=== PATIENT | male | born 1995 ===

== ENCOUNTER 2023-02-22 12:26 | Emergency (ER) | payer SELFPAY ==
[2023-02-22 12:45] VITALS: BP 141/91; PULSE 76; RESP 18; TEMP 36.2; O2SAT 98; BMI 39.4
--- NOTE | 2023-02-22 13:53 | CRLHL7_ITS ---
For Patients: As a result of the Century Cures Act, medical imaging exams and procedure reports are released immediately into your electronic medical record. You may view this report before your referring provider. If you have questions, please contact your health care provider. Indication: Left-sided abdominal pain, history of diverticulitis and recent cholecystectomy Technique: Volumetric multidetector CT images of the abdomen and pelvis were without the administration of intravenous contrast. Comparison: None available. Findings: The lung bases are clear. The liver is normal in attenuation without intrahepatic biliary ductal dilatation. Prior cholecystectomy. Unremarkable gallbladder fossa. There is no significant common biliary ductal dilatation or abrupt cut off. The spleen is normal in attenuation and size. The stomach and duodenum are grossly unremarkable. The pancreas is normal in attenuation without significant atrophy. The adrenal glands are unremarkable. There is no evidence of radiopaque calculus or hydronephrosis. There is moderate stool seen throughout the colon with distal colonic diverticulosis. There is decompressed appearance of the sigmoid and descending colon without overt pericolonic inflammatory changes. Low-grade inflammatory changes may be difficult to exclude. Prior appendectomy. There is no significant mesenteric, retroperitoneal, or pelvic sidewall lymph nodes. The aorta is nonaneurysmal. There is no significant atherosclerotic disease appreciated. The solid pelvic viscera are grossly unremarkable. There is no free fluid or free air. The anterior abdominal wall is intact without significant hernias. The lumbar vertebral body heights are grossly maintained with minimal endplate Schmorl`s defects. There is mild straightening of the normal lumbar lordosis without evidence of significant spondylolisthesis or displaced fracture. Impression: Moderate stool seen throughout the colon with decompressed appearance of the descending and sigmoid colons without overt pericolonic inflammatory change. Low-grade inflammation is not excluded. Prior cholecystectomy and appendectomy. Otherwise, no definite acute intra-abdominal abnormality is appreciated. Please note that all CT scans at this facility use dose modulation, iterative reconstruction, and/or weight-based dosing when appropriate to reduce radiation dose to as low as reasonably achievable. Dictated by Brijesh Pierre MD @ 02/22/2023 3:44:34 PM (Electronically Signed)
--- NOTE | 2023-02-22 13:54 | ED_ITS ---
HPI - General Adult General Date Seen: 02/22/23 Chief complaint: Abdominal Pain Stated complaint: L side pain Time Seen by Provider: 02/22/23 13:47 Source: patient Mode of arrival: ambulatory Limitations: no limitations History of Present Illness HPI narrative: Patient is a 27-year-old male from [place], he is in town working with his dad today any presents for evaluation of left lower quadrant pain which he says has been there for several days. He was actually evaluated in [place], when he was traveling there for work, several days ago. He says that it was a small ER, they did some labs which they told him was normal and they prescribed Bentyl. Symptoms are not improving. He developed some vomiting at about 4:00 p.m. yesterday and has had some diarrhea as well. No bloody or black stools. No fevers. No urinary symptoms. He had a cholecystectomy about a month ago in [place], he was traveling there to visit his . He says that was done on emergent basis. He has a history of diverticulitis about 2 and half years ago which he says was treated with 2 antibiotics and improved. He denies other significant medical history. Does not smoke, drinks occasionally. No me dication allergies but he does list an allergy to contrast Related Data Home Medications Medication Instructions Recorded Confirmed esomeprazole magnesium .ROUTE 02/22/23 Allergies Allergy/AdvReac Type Severity Reaction Status Date / Time Iodinated Contrast Media Allergy Intermediate Verified 02/22/23 12:50 Review of Systems Status of ROS: Reports: 10 or more systems reviewed and unremarkable except as noted in History and below PFSH PFS Social History Smoking Status: Unknown if ever smoked Do you use any of these nicotine containing products: None Second hand tobacco smoke exposure: No How often do you have a drink containing alcohol: never AUDIT-C Alcohol total score: 0 Non-prescribed substance use: denies use service: No Exam Narrative: Exam Narrative: Vital signs as noted above. In general, an alert, well-appearing patient. Head: Normocephalic, atraumatic. Eyes: Pupils are equal reactive. Extraocular movements are full. Conjunctivae are normal. ENT: Mucous membranes are moist. Throat is normal. Neck: Supple without lymphadenopathy. Heart: Regular rate and rhythm. No murmur or rub. Lungs: Clear bilaterally. No increased work of breathing, crackles or wheezes. Abdomen: Soft and nondistended. He has some tenderness in the left abdomen more mid than lower. No rebound guarding or rigidity. Otherwise abdominal exam is unremarkable. Extremities: Well perfused. No edema. No calf tenderness. Pulses intact. Neurologic: Patient is alert and oriented to person and place. Speech is fluent. Face is symmetric. Moves all extremities equally. Affect: Normal. Skin: Warm and dry. Well perfused. Const: Vital Signs, click to edit/add: Vital Signs - 24 hr 02/22/23 12:45 Temperature 97.2 F L Pulse Rate [Pulse Oximeter] 76 Respiratory Rate 18 Blood Pressure [Ri ght Upper Arm] 141/91 H Pulse Oximetry 98 Oxygen Delivery Me thod Room Air Documenting provider has reviewed patient's vital signs: yes Course Course Hospital Course: Will give some Toradol and Zofran IV, as well as a L of saline. Given his contrast allergy I have ordered a noncontrast abdominal CT to evaluate for possible diverticulitis, colitis, kidney stone, pyelonephritis, or other acute findings. UA labs are pending. Labs are notable for a normal white blood cell count of 5, normal diff. Metabolic panel is normal. Lactate is 1.1, LFTs notable for mild transaminase elevations of 48 and 56, remainder of LFTs are normal. His alk-phos is 31. CRP is normal at 0.9. Lipase is 99. My review of his abdominal CT scan does not show obvious diverticulitis, he does have diverticulosis. I do not see obstruction, kidney stone, or other acute findings. Final radiology read is as follows:Impression: Moderate stool seen throughout the colon with decompressed appearance of the descending and sigmoid colons without overt pericolonic inflammatory change. Low-grade inflammation is not excluded. Prior cholecystectomy and appendectomy. Otherwise, no definite acute intra-abdominal abnormality is appreciated. Please note that all CT scans at this facility use dose modulation, iterative reconstruction, and/or weight-based dosing when appropriate to reduce radiation dose to as low as reasonably achievable He did have 1 episode of vomiting while here. He complained of some itching to nursing but did not have any rash or hives or breathing difficulties. I did discuss all of his tests with him and that at this point I do not see clear etiology for his symptoms. I think diverticulitis is relatively unlikely with 4 days of symptoms, I would anticipate seeing something on CT scan by now or some abnormalities in labs. Discussed that we could potentially do an ultrasound to look for signs of a retained gallstone although I think that is relatively unlikely given the location of his pain as well as absence of abnormalities on liver function testing and lipase. I offered Reglan, or other medications to treat his symptoms. He is upset that he has been here for 3 hours, 1 1/2 of which was spent in the waiting room as it is a busy day. He does not feel that we have done anything for him and wants to leave to go somewhere else. He is discharged against medical advice as my hope would have been that we would have him feeling better prior to leaving, as well as consideration of additional testing. He says he plans to go directly from here to a different facility. Vital Signs Vital signs: Initial Vital Signs Temperature 97.2 F L 02/22/23 12:45 Temperature Source Temporal Artery Scan 02/22/23 12:45 Pulse Rate 76 02/22/23 12:45 Respiratory Rate 18 02/22/23 12:45 Blood Pressure 141/91 H 02/22/23 12:45 Blood Pressure Mean 107 H 02/22/23 12:45 Blood Pressure Position Supine 02/22/23 12:45 Pulse Oximetry 98 02/22/23 12:45 Oxygen Delivery Method Room Air 02/22/23 12:45 Vital Signs Temperature 97.2 F L 02/22/23 12:45 Pulse Rate 76 02/22/23 12:45 Respiratory Rate 18 02/22/23 12:45 Blood Pressure 141/91 H 02/22/23 12:45 Pulse Oximetry 98 02/22/23 12:45 Oxygen Delivery Method Room Air 02/22/23 12:45 Temperature 97.2 F L 02/22/23 12:45 Pulse Rate 76 02/22/23 12:45 Respiratory Rate 18 02/22/23 12:45 Blood Pressure 141/91 H 02/22/23 12:45 Pulse Oximetry 98 02/22/23 12:45 Oxygen Delivery Method Room Air 02/22/23 12:45 Medical Decision Making Lab Data Labs: Lab Results 02/22/23 Range/Units 14:18 WBC 5.09 (4.50-11.00) K/uL RBC 4.82 (4.30-5.90) m/uL Hgb 14.5 (13.5-17.5) gm/dL Hct 44.0 (37.0-53.0) % MCV 91 (80-100) fL MCH 30 (26-34) pg MCHC 33 (32-36) gm/dL RDW Coeff of Patricia 13.2 (11.5-15.5) % Plt Count 190 (140-440) K/uL Neut % (Auto) 64.2 (42.0-72.0) % Lymph % (Auto) 24.2 (20-44) % [place] % (Auto) 10.0 (0.0-11.0) % Eos % (Auto) 0.8 (0.0-7.0) % Baso % (Auto) 0.2 (0.0-3.0) % Neut # (Auto) 3.27 (1.7-7.0) K/uL Lymph # (Auto) 1.23 (0.90-2.90) K/uL [place] # (Auto) 0.50 (0.00-0.90) K/UL Eos # (Auto) 0.04 (0.00-0.50) K/uL Baso # (Auto) 0.01 (0.00-0.30) K/uL Sodium 138 (135-149) mmol/L Potassium 4.1 (3.6-5.1) mmol/L Chloride 101 (96-114) mmol/L Carbon Dioxide 29 (20-32) mmol/L BUN 12 (5-24) mg/dL Creatinine 0.7 (0.5-1.5) mg/dL Estimated Creat Clear 189.45 Estimated GFR 130 ml/min Glucose 98 (60-115) mg/dL Lactate 1.1 (0.5-1.9) mmol/L Calcium 9.4 (8.4-10.6) mg/dL Total Bilirubin 0.4 (0.1-1.5) mg/dL Direct Bilirubin 0.0 (0.0-0.5) mg/dL AST 48 H (12-35) U/L ALT 56 H (4-50) U/L Alkaline Phosphatase 31 L (40-150) U/L C-Reactive Protein 0.9 (0.5-1.0) mg/dL Total Protein 7.7 (6.0-8.3) g/dL Albumin 4.6 (3.3-5.0) g/dL Lipase 99 (23-300) U/L Discharge Plan Discharge Clinical Impression: Abdominal pain Patient Disposition: Left Against Medical Advice Condition: Stable Instructions: Abdominal Pain (ED) Additional Instructions: Labs today including complete blood count, metabolic panel, liver function tests, pancreatic enzymes, inflammatory markers are all normal with the exception of mildly increased transaminases. This is nonspecific. Your other liver function tests are normal. Your CT scan shows diverticulosis without obvious signs of diverticulitis. No other significant findings are noted. Prescriptions: No Action esomeprazole magnesium [Nexium] .ROUTE Stand Alone Forms: [employer] Info Instructions
[2023-02-22 14:25] LABS: Lactate* 1.1 mmol/L (0.5-1.9)
[2023-02-22 14:26] LABS: Basophils Absolute Auto 0.01 K/uL (0.00-0.30); Basophils Percent Auto 0.2 % (0.0-3.0); Eosinophils Absolute Auto 0.04 K/uL (0.00-0.50); Eosinophils Percent Auto 0.8 % (0.0-7.0); Hemoglobin* 14.5 gm/dL (13.5-17.5); Immature Granulocytes Abs Auto 0.03 K/uL (0.00-0.30); Immature Granulocytes Pct Auto 0.6 %; Lymphocytes Absolute Auto 1.23 K/uL (0.90-2.90); Lymphocytes Percent Auto 24.2 % (20-44); Mean Corpuscular HGB Conc 33 gm/dL (32-36); Mean Corpuscular Hemoglobin 30 pg (26-34); Mean Corpuscular Volume 91 fL (80-100); Neutrophils Absolute Auto 3.27 K/uL (1.7-7.0); Neutrophils Percent Auto 64.2 % (42.0-72.0); Platelet Count* 190 K/uL (140-440); RDW Coefficient of Variation % 13.2 % (11.5-15.5); Red Blood Count 4.82 m/uL (4.30-5.90); White Blood Count* 5.09 K/uL (4.50-11.00)
[2023-02-22] MEDS: KETOROLAC 15 MG/ML inj IVP (14:26)
[2023-02-22 14:27] LABS: Slide Review Reflex No
[2023-02-22] MEDS: 0.9 % SODIUM CHLORIDE 1000 ml 1,000 ML IV (14:27)
[2023-02-22] MEDS: ONDANSETRON 2 MG/ML inj 4 MG IVP (14:27)
[2023-02-22 14:43] LABS: Chloride* 101 mmol/L (96-114)
[2023-02-22 14:44] LABS: Albumin* 4.6 g/dL (3.3-5.0); Potassium* 4.1 mmol/L (3.6-5.1); Sodium* 138 mmol/L (135-149)
[2023-02-22 14:48] LABS: Alanine Aminotransferase* 56 U/L (4-50); Alkaline Phosphatase* 31 U/L (40-150); Aspartate Amino Transferase* 48 U/L (12-35); Bilirubin Total* 0.4 mg/dL (0.1-1.5); Blood Urea Nitrogen* 12 mg/dL (5-24); Calcium* 9.4 mg/dL (8.4-10.6); Carbon Dioxide* 29 mmol/L (20-32); Creatinine* 0.7 mg/dL (0.5-1.5); Est. Creatinine Clearance* 189.45; Estimated Glomerular Filt Rate 130 ml/min; Glucose* 98 mg/dL (60-115); Lipase* 99 U/L (23-300); Total Protein* 7.7 g/dL (6.0-8.3)
[2023-02-22 14:50] LABS: C Reactive Protein* 0.9 mg/dL (0.5-1.0)
== END 2023-02-22 16:00 | disposition left against medical advice (07) ==
PROVIDERS: Emergency Provider Emergency Medicine
DX: R10.9 Unspecified abdominal pain (principal)
CPT/HCPCS: 36415; 74176; 80048; 80076; 81001; 83605; 83690; 85025; 86140; 96361; 96374; 96375; 99284; 99285; J1885; J2405; J7030